=== PATIENT | female | born 1975 | race Caucasian/White ===

== ENCOUNTER 2017-11-09 12:15 | Observation (INO) ==
[2017-11-09] MEDS ORDERED: SODIUM CHLORIDE 0.9% 1,000 ML IV STA (13:01)
[2017-11-09] MEDS ORDERED: HYDROmorphone 2 MG/1 ML VIAL IV STA (13:01)
[2017-11-09] MEDS ORDERED: ONDANSETRON 4 MG/2 ML VIAL IV ONE (13:02)
[2017-11-09] MEDS ORDERED: ONDANSETRON 4 MG/2 ML VIAL ONE (13:08)
[2017-11-09] MEDS ORDERED: HYDROmorphone 2 MG/1 ML VIAL ONE (13:09)
[2017-11-09] MEDS ORDERED: ZALEPLON 5 MG CAPSULE PO PRN (15:16)
[2017-11-09] MEDS ORDERED: HYDROmorphone 2 MG/1 ML VIAL IV PRN (15:30)
[2017-11-09] MEDS ORDERED: PROMETHAZINE 25 MG/1 ML VIAL IM PRN (15:30)
[2017-11-09] MEDS ORDERED: ACETAMINOPHEN 325 MG TABLET PO PRN (15:30)
[2017-11-09] MEDS ORDERED: ONDANSETRON 4 MG/2 ML VIAL IV PRN (15:30)
[2017-11-09] MEDS: SODIUM CHLORIDE 0.45% 1,000 ML IV SCH (18:05)
[2017-11-10] MEDS: SODIUM CHLORIDE 0.45% 1,000 ML IV SCH (03:59)
[2017-11-10 07:24] VITALS: BP 108/70
[2017-11-10] MEDS ORDERED: TAMSULOSIN 0.4 MG CAPSULE PO SCH (09:00)
== END 2017-11-10 10:45 | disposition home or self-care (01) ==
LOC: N.EDINP 12:15 → N.ED 12:15 → N.EDINP 15:14 → N.5E 15:18
PROVIDERS: ADMIT Urology; ATTEND Urology

== ENCOUNTER 2017-11-11 13:30 | Observation (INO) ==
[2017-11-11] MEDS ORDERED: ONDANSETRON 4 MG/2 ML VIAL ONE (14:13)
[2017-11-11] MEDS ORDERED: KETOROLAC 30 MG/1 ML VIAL ONE (14:13)
[2017-11-11] MEDS ORDERED: KETOROLAC 30 MG/1 ML VIAL IV STA (14:15)
[2017-11-11] MEDS ORDERED: SODIUM CHLORIDE 0.9% 1,000 ML IV STA (14:19)
[2017-11-11] MEDS ORDERED: ONDANSETRON 4 MG/2 ML VIAL IV STA (14:19)
[2017-11-11 14:31] LABS: Calcium 8.7 MG/DL (8.5-10.1); Osmolality,Calculated 277.5 MOS/KG (273-304); Potassium 3.3 MMOL/L (3.5-5.1)
[2017-11-11] MEDS ORDERED: cefTRIAXone 1,000 MG in SYRINGE 1 EACH IV ONE (14:39)
[2017-11-11] MEDS ORDERED: diphenhydrAMINE 50 MG/1 ML VIAL IV PRN (14:41)
[2017-11-11] MEDS ORDERED: ONDANSETRON 4 MG/2 ML VIAL IV PRN (14:41)
[2017-11-11] MEDS ORDERED: oxyCODONE/ACETAMINOPHEN 5-325 MG TABLET PO PRN (14:44)
[2017-11-11] MEDS ORDERED: PROMETHAZINE 25 MG/1 ML VIAL IM PRN (14:44)
[2017-11-11] MEDS: LACTATED RINGERS 1,000 ML IV SCH ×2 (15:35→22:47)
[2017-11-11] MEDS: HYDROmorphone 2 MG/1 ML VIAL IV PRN ×2 (15:36→22:51)
[2017-11-11] MEDS: ACETAMINOPHEN 325 MG TABLET PO SCH ×2 (15:50→21:59)
[2017-11-11] MEDS: POTASSIUM CHLORIDE RIDER 10 MEQ in PREMIX 1 EACH IV PRN ×3 (17:46→22:01)
[2017-11-11 18:20] LABS: Apearance,Urine CLEAR (Clear); Bilirubin,Urine Negative (Negative); Blood, Urine Large mg/dL (Negative); Glucose,Urine (UA) Negative (Negative); Ketones,Urine Negative (Negative); Nitrite,Urine Negative (Negative); Protein,Urine Negative; RBC,Urine 4 /HPF (0-4); Squamous Epithelial Cell,Urine Occasional /HPF (0-10); Urine Color Straw (Yellow); Urine Specific Gravity 1.002 (1.001-1.035); Urine Urobilinogen < 2.0 EU/DL (0.2-1.0); WBC,Urine 2 /HPF (0-6)
[2017-11-11] MEDS: FAMOTIDINE 20 MG TABLET PO SCH (21:59)
[2017-11-11] MEDS: TAMSULOSIN 0.4 MG CAPSULE PO SCH (22:00)
[2017-11-12] MEDS: POTASSIUM CHLORIDE RIDER 10 MEQ in PREMIX 1 EACH IV PRN (00:21)
[2017-11-12] MEDS: ACETAMINOPHEN 325 MG TABLET PO SCH ×4 (02:27→21:14)
[2017-11-12 07:12] LABS: Albumin 2.9 G/DL (3.4-5.0); Bilirubin,Total 0.7 MG/DL (0.2-1.0); Calcium 8.2 MG/DL (8.5-10.1); Osmolality,Calculated 285.7 MOS/KG (273-304); Potassium 4.4 MMOL/L (3.5-5.1); Total Protein 5.2 G/DL (6.4-8.3)
[2017-11-12] MEDS: HYDROmorphone 2 MG/1 ML VIAL IV PRN ×5 (07:38→23:35)
[2017-11-12] MEDS: LACTATED RINGERS 1,000 ML IV SCH ×3 (09:35→21:12)
[2017-11-12] MEDS: FAMOTIDINE 20 MG TABLET PO SCH (21:13)
[2017-11-12] MEDS: TAMSULOSIN 0.4 MG CAPSULE PO SCH (21:13)
[2017-11-13] MEDS: ACETAMINOPHEN 325 MG TABLET PO SCH (04:13)
[2017-11-13] MEDS: LACTATED RINGERS 1,000 ML IV SCH (04:45)
[2017-11-13 05:08] VITALS: BP 105/70
== END 2017-11-13 06:30 | disposition home or self-care (01) ==
LOC: N.ED 13:30 → N.EDINP 13:30 → N.5E 15:00
PROVIDERS: ADMIT Surgery; ATTEND Surgery